=== PATIENT | male | born 1995 | race Caucasian/White ===

== ENCOUNTER 2018-03-13 17:03 | Emergency (ER) | payer OTHER ==
[2018-03-13] MEDS ORDERED: Proparacaine 0.5% Ophth Soln 15 ML Bottle EYERT ONE (17:08)
[2018-03-13] MEDS ORDERED: Sodium Chloride 0.9% 1,000 ML ONE (17:16)
--- NOTE | 2018-03-13 17:54 | EDM.PDOC ---
ED HPI GENERAL MEDICAL PROBLEM - General Chief Complaint: Eye Problems Stated Complaint: SOMETHING IN EYES Time Seen by Provider: 03/13/18 17:08 Source of Information: Reports: Patient, RN Notes Reviewed - History of Present Illness INITIAL COMMENTS - FREE TEXT/NARRATIVE: 23-year-old male comes in with quite severe right eye discomfort. He accidentally suffered splash injury to the right eye about 2 hours ago. 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 He states he had to look into a barrel to check level and in order to see he had to take his glasses off. Time air bubble splashed chemical right up into the right eye. Immediate onset of pain and irritation right eye. Start immediate irrigation and irrigated for a "long period of time using water available on scene. He apparently was working out of town so not able to get here to the ED up until a very short time ago arriving at our ED about 2 hours after the incident occurred. He does not wear contacts. He denies any type of pain, burning or skin irritation of the eyelids or face. No inhalation exposure or injury. He continued to have quite severe right eye discomfort on arrival to ED. Right Eye Pain Score (Numeric/FACES): 8 - Related Data Allergies Allergy/AdvReac Type Severity Reaction Status Date / Time No Known Allergies Allergy Verified 03/13/18 17:12 Home Meds: Home Meds Acetaminophen/HYDROcodone [[place] 325-5 MG] 1 tab PO Q4H PRN #10 tablet 03/13/18 [Rx] Past Medical History - Past Health History Medical/Surgical History: Denies Medical/Surgical History Social & Family History - Tobacco Use Smoking Status *Q: Current Every Day Smoker Years of Tobacco use: 5 Packs/Tins Daily: 1 - Recreational Drug Use Recreational Drug Use: No ED ROS GENERAL - Review of Systems Review Of Systems: See Below Constitutional: Reports: No Symptoms HEENT: Reports: Eye Pain. Denies: Throat Pain, Throat Swelling Respiratory: Denies: Shortness of Breath, Wheezing Cardiovascular: Denies: Chest Pain GI/Abdominal: Denies: Abdominal Pain, Nausea, Vomiting Musculoskeletal: Reports: No Symptoms Skin: Reports: No Symptoms Neurological: Reports: No Symptoms ED EXAM GENERAL W FULL EYE - Physical Exam Exam: See Below General Appearance: Alert, Moderate Distress Eye Exam: Bilateral Eye: PERRL Visual Acuity (R) 20/: 25 Visual Acuity (L) 20/: 20 Eyelids: Bilateral: Normal Appearance Conjunctiva & Sclera: Right: Injected Cornea Exam: Right: Examined with Flourescein, Other (With slit-lamp exam there is edema, evidence of superficial keratitis type injury of the lower 35 to 40 percent of the cornea, mid and upper cornea is clear, with slit-lamp exam very mild floor seen uptake of the lower 35-40% of the cornea.) Extraocular Movements: Bilateral: Intact Pupillary Size: Bilateral: 4 mm Anterior Chamber: Right: Normal Appearance Nose: Normal Inspection Throat/Mouth: Normal Inspection Head: Other (No evidence of injury to head or face). No: Facial Swelling Neck: Supple Respiratory/Chest: No Respiratory Distress Neurological: Alert, Oriented, No Motor/Sensory Deficits Skin Exam: Warm, Dry, Normal Color, No Rash Course - Vital Signs Last Recorded V/S: Last Vital Signs Temp 97.7 F 03/13/18 17:12 Pulse 70 03/13/18 17:12 Resp 17 03/13/18 17:12 BP 134/95 H 03/13/18 17:12 Pulse Ox 98 03/13/18 17:12 - Orders/Labs/Meds Meds: Medications Discontinued Medications Generic Name Dose Route Start Last Admin Trade Name Arnulfo PRN Reason Stop Dose Admin Acetaminophen 975 mg 03/13/18 17:58 03/13/18 18:15 Tylenol PO 03/13/18 17:59 975 mg NOW ONE Administration Fluorescein Sodium 0.6 mg 03/13/18 17:59 03/13/18 18:15 Ful-Lisa EYERT 03/13/18 18:00 0.6 mg ONETIME ONE Administration Sodium Chloride Confirm 03/13/18 17:16 03/13/18 17:33 Normal Saline Administered 03/13/18 17:17 Not Given Dose 1,000 mls @ as directed .ROUTE .STK-MED ONE Proparacaine HCl 1 ml 03/13/18 17:08 03/13/18 18:17 Proparacaine 0.5% Ophth Soln EYERT 03/13/18 17:09 1 drop ONETIME ONE Administration - Re-Assessments/Exams Free Text/Narrative Re-Assessment/Exam: 03/13/18 19:10 Nurses initially ran hi through the eyewash station near the ED entrance from the garage. His eye was than irrigated with a full liter of normal saline using the Delta lens. We used proparacaine for anesthesia. Of note the proparacaine did completely relieve his quite severe continued discomfort and irritation on arrival to ED. Reviewing the MSD sheet it states that there is no expected critical injury to the eye from the substance exposure, labeled as "fatty amine derivatives" expected ocular symptoms listed include pain watering and redness. Of note this is capable of causing severe skin burn or irritation and also listed as an alkaline substance. He's had no mouth or throat irritation. No cough, wheezing or difficulty breathing. He denies any skin irritation to his head or face. He states that this "just splash directly into his right eye" I prescribed dexamethasone ophthalmic solution to use 2 drops this evening and then 1 drop 4 times daily tomorrow. Requested he follow up with one of our local eye doctors tomorrow. Departure - Departure Time of Disposition: 18:34 Disposition: Home, Self-Care 01 Clinical Impression: Chemical burn due to alkali, cornea, right Qualifiers: Encounter type: initial encounter Qualified Code(s): T54.3X1A - Toxic effect of corrosive alkalis and alkali-like substances, accidental (unintentional), initial encounter - Discharge Information Prescriptions: Acetaminophen/HYDROcodone [[place] 325-5 MG] 1 tab PO Q4H PRN #10 tablet PRN Reason: Pain Instructions: Chemical Burn of the Eyes, Adult Referrals: PCP,None [Primary Care Provider] - Forms: ED Department Discharge Additional Instructions: TobraDex eyedrops, 1 drop once you get the prescription filled, and then one or 2 drops at bedtime, and then continue that one drop 4 times daily tomorrow. You may alternate Advil 600 mg up to 3 times daily with Tylenol in between doses for extra pain relief or hydrocodone if needed for more severe pain. Do not take Tylenol and hydrocodone at the same time. Do not drive or work when taking hydrocodone. See one of our [facility] in [facility] tomorrow for recheck. Call for appointment if going to one of the clinics in [facility] or otherwise it is our understanding that he would not need an appointment to see the carpenter repairer at [facility]. It is expected that this should heal over the next 24-48 hours. Return to ED as needed.
[2018-03-13] MEDS ORDERED: Acetaminophen 325 MG Tab PO ONE (17:58)
[2018-03-13] MEDS ORDERED: Fluorescein 0.6 MG Ophth Strip EYERT ONE (17:59)
== END 2018-03-13 18:48 | disposition home or self-care (01) ==
LOC: JD.ED 17:03
DX: T54.3X1A Toxic effect of corrosive alkalis and alkali-like substances, accidental (unintentional), initial encounter (principal); F17.210 Nicotine dependence, cigarettes, uncomplicated
CPT/HCPCS: 99283; A9270